=== PATIENT | male | born 1950 | race Caucasian/White ===

== ENCOUNTER → 2024-04-07 13:08 | Outpatient (REF) | payer MEDICARE, OTHER, SELFPAY | LOC: RAD 13:08 | PROVIDERS: ATTENDING PHYSICIAN Otolaryngology; REFERRING PHYSICIAN Internal Medicine | DX: E07.9 Disorder of thyroid, unspecified (principal) | CPT/HCPCS: 76536 ==

== ENCOUNTER → 2025-03-19 12:14 | Outpatient (REF) | payer MEDICARE, OTHER, SELFPAY | LOC: HWRAD 12:14 | PROVIDERS: ATTENDING PHYSICIAN Otolaryngology; FAMILY PHYSICIAN Physician Assistant | DX: E07.9 Disorder of thyroid, unspecified (principal) | CPT/HCPCS: 76536 ==